=== PATIENT | female | born 2005 | race Caucasian/White ===

== ENCOUNTER 2024-12-04 13:01 | Emergency (ER) | payer OTHER, SELFPAY ==
[2024-12-04 13:07] VITALS: BP 127/82; PULSE 119; RESP 18; TEMP 37; O2SAT 98
--- NOTE | 2024-12-04 13:19 | ED.URI ---
HPI - URI/Sore Throat General Chief Complaint: Upper Respiratory Infection Stated Complaint: Cough,Chest Congestion Time Seen by Provider: 12/04/24 13:21 Source: patient Mode of arrival: ambulatory Limitations: no limitations History of Present Illness HPI Narrative: 19-year-old female presented for complaint cough and chest congestion, congestion , intermittent fever and hoarse voice. Onset 6 days. Endorses a crackling sound when breathing at times. reports temp up to 101 yesterday. Denies shortness of breath, wheezing nausea, vomiting diarrhea or lethargy. Taking Tylenol and ibuprofen. Reports exposure to RSV. Related Data Home Medications ?Medication ?Instructions ?Recorded ?Confirmed ?Last Taken ?Type Nexplanon 12/04/24 Unknown History Allergies Allergy/AdvReac Type Severity Reaction Status Date / Time No Known Allergies Allergy Unverified 12/04/24 13:05 Review of Systems Review of Systems: CONSTITUTIONAL: Denies body aches, reports fever, chills, or sweats. EYES: Denies visual changes, redness, or discharge. ENT: reports rhinorrhea, congestion, denies sore throat, or otalgia. CARDIOVASCULAR: Denies chest pain, palpitations, or edema. RESPIRATORY: Reports cough, denies sob, wheezing. SKIN: Denies rash, itching, or wounds. MUSCULOSKELETAL: Denies back pain, joint pain, or myalgia. NEUROLOGIC: Denies headache All systems reviewed & are unremarkable except as noted in HPI and below PMFSH Comments At time of signature, I have reviewed and agree with nursing past medical, surgical, social and family history unless otherwise noted. Please see nursing chart for further information. There is no relevant family history pertinent to the presenting complaint Exam Narrative: GENERAL: mildly ill-appearing, in no acute distress. EYES: EOMI. No redness or drainage. Conjunctivae normal. ENT: Mucous membranes pink and moist. No rhinorrhea. TMs normal bilaterally. hoarse voice. Throat normal. Uvula midline. NECK: Normal AROM. Supple. CHEST: No respiratory distress. Lungs clear to all logan. Frequent automotive sales specialist cough. HEART: Regular rate and rhythm. No murmur appreciated. SKIN: Warm, dry, no rash. Capillary refill normal. Normal skin turgor. NEURO: Alert and oriented x3. Gait steady. PSYCH: Normal affect. Course Course Emergency Course: Patient is aware of diagnosis, understands and agrees to treatment plan. Anticipatory guidance given. Patient agrees to follow-up as directed and is aware of reasons to seek care at the emergency department. Portions of this record may have been created with voice recognition software Level of Care: Express Care Visit Vital Signs Vital signs: Vital Signs Temperature 98.6 F 12/04/24 13:07 Pulse Rate 119 H 12/04/24 13:07 Respiratory Rate 18 12/04/24 13:07 Blood Pressure 127/82 12/04/24 13:07 Pulse Oximetry 98 12/04/24 13:07 Oxygen Delivery Room Air 12/04/24 13:07 Temperature 98.6 F 12/04/24 13:07 Pulse Rate 119 H 12/04/24 13:07 Respiratory Rate 18 12/04/24 13:07 Blood Pressure 127/82 12/04/24 13:07 Pulse Oximetry 98 12/04/24 13:07 Oxygen Delivery Room Air 12/04/24 13:07 MDM - URI/Sore Throat MDM Narrative Medical decision making narrative: Discussed physical exam findings. Advised supportive measures and signs/symptoms to go to the ER. Pt is appropriate for outpt treatment and f/u. Differential Diagnosis Differential diagnosis: Likely upper respiratory infection, sinusitis, viral infection, bronchitis and other ( Pneumonia) Discharge Plan Discharge Clinical Impression: Bronchitis Patient Disposition: Home, Self-Care Condition: Stable Instructions: Antibiotic Form, Acute Bronchitis (ED) Additional Instructions: Acute bronchitis can be contagious because it is usually caused by infection with a virus or bacteria. It is usually for a few days but you can be contagious for up to one week. Avoid crowds until you do not have a fever and symptoms are improved if symptoms are due to a viral illness, it is not treated with antibiotics. Viral symptoms can be present for up to 10-14 days. Recommend Flonase spray and Zyrtec for sinus congestion Cough syrup may cause drowsiness; avoid driving or take it at night time. Tylenol every 8 hours as needed for pain/fever Soft foods, cool liquids, warm tea. Gargle with warm saltwater twice a day. Chloraseptic spray and throat lozenges. Rest and stay hydrated. --Follow up with your PCP --Go to the ER immediately if you cannot swallow your saliva, trouble breathing/wheezing, throat swelling, pain is persistent and severe Patient Language: Thai Prescriptions: New methylprednisolone [Medrol (Rodney)] 4 mg tablets,dose pack See Rx Instructions .ROUTE .COMPLEX Qty: 21 0RF Rx Instructions: orally per package directions amoxicillin-pot clavulanate 875-125 mg tablet 1 tablet PO Q12H 7 Days Qty: 14 0RF No Action Nexplanon Follow-up/Referrals: PHYSICIAN,AGRICULTURAL REAL ESTATE AGENT [Primary Care Provider] - Stand Alone Forms: Work/School Release IP Time of Disposition: 13:28
--- OUTSIDE RECORDS SUMMARY | 2024-12-09 09:01 | XMS_ITS | Clinical Summary ---
Author Organization [facility] Address [address] [place] [address] Care Team Providers Care Drug And Alcohol Counsellor Name Role Phone Larisa Siddiqi MD Primary Care Provider [phone] Allergies No known active allergies Medications sertraline (ZOLOFT) 50 mg tablet Take 1 tablet (50 mg total) by mouth daily Active scopolamine 1 mg over 3 days patch [address] 1 patch on the skin once 4 Active ibuprofen (ADVIL,MOTRIN) suspension 100 mg/5 mL Take 10 mL (200 mg total) by mouth every 6 (six) hours as needed Active hydrOXYzine (ATARAX) 25 mg tablet Take 1 tablet (25 mg total) by mouth every 6 (six) hours as needed Active etonogestreL (Nexplanon) 68 mg implant by subdermal route 8 Active Active Problems Problem Noted Date Diagnosed Date 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 The mydriasis self- resolved without treatment. Patient underwent CT head without contrast without any identifiable lesion. Associated with headache at the time of the anisocoria which has slowly resolved. Most likely benign episodic mydriasis vs ophthalmic migraine. Discuss that given normal exam at the time of clinic, unlikely there are compressive lesions causing the dilated pupil. Recommend follow up with PCP for headache management. Social History Tobacco Use Types Packs/Day Years Used Date Smoking Tobacco: Never Assessed Personal Safety Answer Date Recorded Have you ever been in or are you currently in a harmful physical or emotional relationship or is someone making you feel afraid or unsafe? Denies 06/02/2024 Comments No Sex and Gender Information Value Date Recorded Sex Assigned at Not on file Legal Sex Female 12:32 AM PAY PER CLICK STRATEGIST Gender Identity Not on file Sexual Orientation Not on file Obstetrics History Last Filed Vital Signs Vital Sign Reading Time Taken Comments Blood Pressure 119/78 06/02/2024 10:17 AM CDT Pulse 86 06/02/2024 12:20 PM CDT Temperature 36.6 ??C (97.8 ??F) 06/02/2024 10:17 AM C DT Respiratory Rate 16 06/02/2024 10:17 AM CDT Oxygen Saturation 97% 06/02/2024 12:20 PM CDT Inhaled Oxygen Concentration - - Weight 86.2 kg (190 lb) 06/02/2024 10:17 AM CDT Height 157.5 cm (5' 2 ) 06/02/2024 10:17 AM CDT Body Mass Index 34.75 06/02/2024 10:17 AM CDT Plan of Treatment Health Maintenance Due Date Last Done Comments Cervical Cancer Screening 2003 Depression Screening 2003 Hepatitis C Screening 2003 Meningococcal B Vaccine (1 o f 2 - Patient Seeks Protection) 2019 Regular Well Visit/Exam 18-64 2021 Covid-19 Vaccine (3 - 2023-2 5 season) 2024 03/08/2021, 02/13/2021 Influenza Vaccine (#1) 2024 2, 09/10/2011, 12/24/2004, Additional history exists DTaP/Tdap/Td Vaccine (7 - Td or Tdap) 12/13/2024 12/13/2014, 02/24/2009, 02/28/2006, Additional history exists Pneumococcal vaccine <65 Completed 006, 09/07/2004, 2003, Additional history exists Varicella Vaccines Completed 02/24/2009, 05/13/2005 HPV Vaccines Completed 05/13/2016, 12/13/2014 Meningococcal Vaccine Completed 05/25/2020, 015 Insurance Care Teams Drug And Alcohol Counsellor Relationship Specialty Start Date End Date Larisa Siddiqi MD PCP - General 07/19/21
--- OUTSIDE RECORDS SUMMARY | 2024-12-09 09:01 | XMS_ITS | Referral Summary ---
Author Organization [facility] Address [address] [place] [address] Care Team Providers Care Probation And Parole Officer Name Role Phone Larisa Siddiqi MD Primary Care Provider [phone] Allergies No known active allergies Medications sertraline [...] on file Legal Sex Female 12:32 AM CURRICULUM ASSISTANT PRINCIPAL Gender Identity Not on file Sexual Orientation Not on file Last Filed Vital Signs Vital Sign Reading [...] 06/02/2024 10:17 AM CDT Plan of Treatment Not on file Insurance Care Teams Probation And Parole Officer Relationship Specialty Start Date End Date Larisa Siddiqi MD PCP - General 07/19/21
--- OUTSIDE RECORDS SUMMARY | 2024-12-09 09:01 | XMS_ITS | Clinical Summary ---
Author Organization [facility] Address [address] [facility] [place] [address] Phone Care Team Providers Care Sociology Research Assistant Name Role Phone Larisa Siddiqi MD Primary Care Provider [phone] Allergies No known active allergies Medications etonogestrel (Nexplanon) 68 MG Implant by Subcutaneous route. 8 Active hydrOXYzine (ATARAX) 25 MG Tablet Take 25 mg by mouth. Active sertraline (ZOLOFT) 50 MG Tablet Take 50 mg by mouth. 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 Social History Tobacco Use Types Packs/Day Years Used Date Smoking Tobacco: Never Smokeless Tobacco: Never Alcohol Use Standard Drinks/Week Comments No 0 (1 standard drink = 0.6 oz pur e alcohol) Sexually Active Control Partners Comments Not Currently Comments No Sex and Gender Information Value Date Recorded Sex Assigned at Not on file Legal Sex Female 11:37 PM CDT Gender Identity Not on file Sexual Orientation Not on file Last Filed Vital Signs Vital Sign Reading Time Taken Comments Blood Pressure 126/72 07/29/2024 2:16 PM CDT Pulse 108 07/29/2024 2:16 PM CDT Temperature 37.1 ??C (98.7 ??F) 07/29/2024 2:16 PM CD T Respiratory Rate 18 07/29/2024 2:16 PM CDT Oxygen Saturation 98% 07/29/2024 2:16 PM CDT Inhaled Oxygen Concentration - - Weight 61.7 kg (136 lb) 07/14/2019 9:12 AM CDT Height 157.5 cm (5' 2 ) 07/14/2019 9:12 AM CDT Body Mass Index 24.87 07/14/2019 9:12 AM CDT Plan of Treatment Health Maintenance Due Date Last Done Comments Hepatitis C Virus (HCV) Screening 2003 Meningococcal B Immunization (1 of 2 - Standard) 2019 Influenza Immunization (#1) 2024 12/0 05/2012, 09/10/2011, 12/24/2004, Additional history exists SARS-COV-2 Immunization ( - season) 2024 03/08/2021, 02/13/2021 Pap Smear 2024 Respiratory Syncytial Virus (RSV) Immunization (Adult) (1 - 1-dose 75+ series) 2078 Hepatitis B Immunization Completed 004, 2003, 2003, Additional history exists Pneumococcal Immunization Combined Aged Out 02/28/2006, 09/07/2004, 2003, Additional history exists No longer eligible based on patient's age to complete this topic Hepatitis A Immunization Discontinued 02/24/2009, 12/2006 Measles Mumps Rubella (MMR) Immunization Discontinued 02/24/2009, 05/13/2005 Polio (IPV) Immunization Discontinued 009, 03/12/2004, 2003, Additional history exists Varicella Immunization Discontinued 02/24/2009, 2004 DTaP/Tdap/Td Immunization Discontinued 2014, 02/24/2009, 02/28/2006, Additional history exists TdaP Immunization Completed 12/13/2014 Human Papillomavirus (HPV) Immunization Completed 05/13/2016, 12/13/2014 Meningococcal Immunization (ACWY) Completed 05/25/2020, 12/13/2014 Rotavirus Immunization Aged Out No lo nger eligible based on patient's age to complete this topic Insurance MEDICAID [facility] [employer] [address] [place], [place] [id number] [employer] Care Teams Sociology Research Assistant Relationship Specialty Start Date End Date Larisa Siddiqi MD [address] [place] [address] [place] [id number] PCP - General Pediatrics 02/24/18
--- OUTSIDE RECORDS SUMMARY | 2024-12-09 09:01 | XMS_ITS | Data Portability ---
Author Organization [facility] SHANIQUAKasi Address [address] [place] [address] [place] [address] Assessment Encounter Date Assessment Date Assessment LastModified by Organization Details LastModified Time 01/23/2018 01/23/2018 1. All forms of control reviewed with patient including risks, benefits, pros and cons. 2. Patient verbalized understanding of all forms and that abstinence is the only true form of control. 3. Condom use reviewed as well and prevention and transmission of STD's. 4. Nexplanon inserted without issue 5. Follow up in one year, sooner if needed [email or web address] Not available 02/02/2018 11:18:09 Plan of Treatment Reminders Order Date Submit Date Provider Last Modified By Organization Details Last Modified Time Details Appointments None record ed. Lab pregna ncy test, urine 2017 018 [email or web address] In-Office Order, Internal Use Only DO Not Attach Compendium DO Not Attach Compendium, Do Not Delete/merge, [id number] 8 14:12:51 vagina l pathog ens panel, NESHA+pr obe, vagina l fluid 2021 022 [facility], [address] [facility], [address], [place], [address], 07:12:44 urinal ysis, dipsti ck 2021 022 [email or web address] In-Office Order, Internal Use Only DO Not Attach Compendium DO Not Attach Compendium, Do Not Delete/merge, [id number] 15:12:24 cultur e, urine 2021 022 PITA [facility], [address], [address], [place], [address], 2 07:12:44 urinal ysis, dipsti ck 2021 022 [facility] In-Office Order, Internal Use Only DO Not Attach Compendium DO Not Attach Compendium, Do Not Delete/merge, [id number] 12:06:55 Referral physic al therap ist referr al 2022 023 [facility], [address] [facility], [facility], [place], [address], 3 17:29:13 Procedures None record ed. Surgeries None record ed. Imaging US, pelvis , transa bdomin al + transv aginal 2022 023 [facility], [address] [facility] , [place], [address], 3 08:24:15 Medication Orders Nexpla non 68 mg subder mal implan t 2017 018 [id number], [address], [place], [place], [id number], 8 14:59:44 Macrob id 100 mg capsul e 2021 022 [facility] #[id number], [address], [place], [place], [id number], 2 09:46:59 Pyridi um 100 mg tablet 2021 022 [facility]75703, [address], [place], [place], [id number], 2 09:46:56 tercon azole 0.8 % vagina l cream 2021 022 [facility][id number], [address], [place], [place], [id number], 11:35:18 Patient TargetsNo targets recorded. Patient Instructions Encounter Date Encounter Id Patient Instructions Last Modified By Organization Details Last Modified Time 05/07/2023 [id number] chronic pelvic pain: care instructions [facility] Not available 05/07/2023 12:15:52 Reason for Referral Physical Therapist Referral for Chronic pelvic pain of female Referring Physician: Sosa Cordova, Dive Master, Encounter Date: 05/07/2023 Results Created Date Observation Date Name Description Value Unit Range Abnormal Flag Note LastModifiedBy Organization Detail LastModifiedTime 01/24/20 18 01/23/2018 pregn gustavo test, urine HCG negati ve Not Available In-Office Order Internal Use Only DO Not Attach Compendium DO Not Attach Compendium, Do Not Delete/merge, [id number] 01/23/2018 14:10:20 01/23/20 22 01/23/2022 CT, NG, TRICH VAG BY NESHA chlamydia by NESHA Negati ve negati ve Not Available [facility] ([facility]) [address] [place], [address], 01/24/2022 07:12:44 01/23/20 22 01/23/2022 CT, NG, TRICH VAG BY NESHA gonococcus by NESHA Negati ve negati ve Not Available [facility] ([facility]) [address] [place], [address], 01/24/2022 07:12:44 01/23/20 22 01/23/2022 CT, NG, TRICH VAG BY NESHA trich vag by NESHA Negati ve negati ve Not Available [facility] ([facility]) [address] [place], [address], 01/24/2022 07:12:44 01/23/20 22 01/24/2022 URINE CULTU RE, ROUTI NE urine culture, routine Final report Not Available [facility] ([facility]) [address] [facility], [place], [address], 01/24/2022 07:12:44 01/23/20 22 01/24/2022 URINE CULTU RE, ROUTI NE result 1 Commen t Mixed uroge nital rajeev Less than 10,00 0 colon ies/m L Not Available [facility] ([facility]) [address] [facility], [place], [address], 01/24/2022 07:12:44 01/23/20 22 01/22/2022 urina lysis , dipst ick Leukocytes Negati ve Not Available In-Office Order Internal Use Only DO Not Attach Compendium DO Not Attach Compendium, Do Not Delete/merge, [id number] 01/22/2022 14:57:58 01/23/20 22 01/22/2022 urina lysis , dipst ick Nitrite negati ve Not Available In-Office Order Internal Use Only DO Not Attach Compendium DO Not Attach Compendium, Do Not Delete/merge, [id number] 01/22/2022 14:57:58 01/23/20 22 01/22/2022 urina lysis , dipst ick Urobilinogen .2 Not Available In-Of fice Order Internal Use Only DO Not Attach Compendium DO Not Attach Compendium, Do Not Delete/merge, [id number] 01/22/2022 14:57:58 01/23/20 22 01/22/2022 urina lysis , dipst ick Protein Negati ve Not Available In-Office Order Internal Use Only DO Not Attach Compendium DO Not Attach Compendium, Do Not Delete/merge, [id number] 01/22/2022 14:57:58 01/23/20 22 01/22/2022 urina lysis , dipst ick pH 7.0 Not Available In-Office Order Internal Use Only DO Not Attach Compendium DO Not Attach Compendium, Do Not Delete/merge, [id number] 01/22/2022 14:57:58 01/23/20 22 01/22/2022 urina lysis , dipst ick Blood Negati ve Not Available In-Office Order Internal Use Only DO Not Attach Compendium DO Not Attach Compendium, Do Not Delete/merge, 01/22/2022 14:57:58 01/23/20 22 01/22/2022 urina lysis , dipst ick Specific Clayton 1.015 Not Available In-Off ice Order Internal Use Only DO Not Attach Compendium DO Not Attach Compendium, Do Not Delete/merge, 01/22/2022 14:57:58 01/23/20 22 01/22/2022 urina lysis , dipst ick Ketone Negati ve Not Available In-Office Order Internal Use Only DO Not Attach Compendium DO Not Attach Compendium, Do Not Delete/merge, 01/22/2022 14:57:58 01/23/20 22 01/22/2022 urina lysis , dipst ick Bilirubin Negati ve Not Available In-Office Order Internal Use Only DO Not Attach Compendium DO Not Attach Compendium, Do Not Delete/merge, 01/22/2022 14:57:58 01/23/20 22 01/22/2022 urina lysis , dipst ick Glucose Negati ve Not Available In-Office Order Internal Use Only DO Not Attach Compendium DO Not Attach Compendium, Do Not Delete/merge, 01/22/2022 14:57:58 01/23/20 22 01/22/2022 urina lysis , dipst ick Appearance Clear Not Available In-Offi ce Order Internal Use Only DO Not Attach Compendium DO Not Attach Compendium, Do Not Delete/merge, 01/22/2022 14:57:58 01/23/20 22 01/22/2022 urina lysis , dipst ick Color Pale Yellow Not Available In-Office Order Internal Use Only DO Not Attach Compendium DO Not Attach Compendium, Do Not Delete/merge, 01/22/2022 14:57:58 02/14/20 22 02/13/2022 urina lysis , dipst ick Leukocytes Negati ve Not Available In-Office Order Internal Use Only DO Not Attach Compendium DO Not Attach Compendium, Do Not Delete/merge, 02/13/2022 11:35:09 02/14/20 22 02/13/2022 urina lysis , dipst ick Nitrite negati ve Not Available In-Office Order Internal Use Only DO Not Attach Compendium DO Not Attach Compendium, Do Not Delete/merge, 02/13/2022 11:35:09 02/14/20 22 02/13/2022 urina lysis , dipst ick Urobilinogen .2 Not Available In-Of fice Order Internal Use Only DO Not Attach Compendium DO Not Attach Compendium, Do Not Delete/merge, 02/13/2022 11:35:09 02/14/20 22 02/13/2022 urina lysis , dipst ick Protein Negati ve Not Available In-Office Order Internal Use Only DO Not Attach Compendium DO Not Attach Compendium, Do Not Delete/merge, 02/13/2022 11:35:09 02/14/20 22 02/13/2022 urina lysis , dipst ick pH 5.0 Not Available In-Office Order Internal Use Only DO Not Attach Compendium DO Not Attach Compendium, Do Not Delete/merge, 02/13/2022 11:35:09 02/14/20 22 02/13/2022 urina lysis , dipst ick Blood Hemoly zed: Trace Not Available In-Office Order Internal Use Only DO Not Attach Compendium DO Not Attach Compendium, Do Not Delete/merge, 02/13/2022 11:35:09 02/14/20 22 02/13/2022 urina lysis , dipst ick Specific Clayton 1.030 Not Available In-Off ice Order Internal Use Only DO Not Attach Compendium DO Not Attach Compendium, Do Not Delete/merge, 02/13/2022 11:35:09 02/14/20 22 02/13/2022 urina lysis , dipst ick Ketone Negati ve Not Available In-Office Order Internal Use Only DO Not Attach Compendium DO Not Attach Compendium, Do Not Delete/merge, 02/13/2022 11:35:09 02/14/20 22 02/13/2022 urina lysis , dipst ick Bilirubin Negati ve Not Available In-Office Order Internal Use Only DO Not Attach Compendium DO Not Attach Compendium, Do Not Delete/merge, [id number] 02/13/2022 11:35:09 02/14/20 22 02/13/2022 urina lysis , dipst ick Glucose Negati ve Not Available In-Office Order Internal Use Only DO Not Attach Compendium DO Not Attach Compendium, Do Not Delete/merge, [id number] 02/13/2022 11:35:09 05/14/20 23 05/14/2023 US, pelvi s, trans abdom inal + trans vagin al No observ ation record ed. [place] [address] [place], [address], 05/15/2023 15:34:41 Result Notes None recorded. Problems No Known Problems Procedures Surgical History Date Name Laterality Status Provider Name and Address Organization Details Recorded Time 8 Control Implant Insertion completed SULTANA Zavaleta Attn: Accounting,[address] [facility], [place], [address], [place] - [facility] 02/02/2018 11:17:43 Imaging Results Imaging Date Name Status LastModified by Organization Details LastModified Time 05/14/2023 US, pelvis, transabdominal + transvaginal completed [place] [address] [place], [address], 05/15/2023 15:34:41 Procedure Notes None recorded. Medical Equipment None Reported. Allergies No known drug allergies Medications Name Sig Start Date Stop Date Status Note LastModified by Organization Details LastModified Time fluconazole 150 mg tablet Take 1 tablet by oral route as directed for 1 day. 05/07 completed Not Available Not Available Not Available prednisone 20 mg tablet TAKE TWO TABLETS BY MOUTH ONCE DAILY FOR FIVE DAYS 05/07 completed Not Available Not Available Not Available terconazole 0.8 % vaginal cream Insert 1 applicato rful every day by vaginal route at bedtime for 3 days. 05/07 completed Not Available Not Available Not Available amoxicillin 875 mg tablet TAKE 1 TABLET BY MOUTH TWICE DAILY FOR 10 DAYS 05/07 completed Not Available Not Available Not Available phenazopyri dine 100 mg tablet TAKE 1 TABLET BY MOUTH THREE TIMES DAILY FOR 7 DAYS 01/29 completed Not Available Not Available Not Available doxycycline monohydrate 100 mg capsule TAKE ONE CAPSULE BY MOUTH TWICE DAILY FOR TEN DAYS 05/07 completed Not Available Not Available Not Available omeprazole 20 mg capsule,del ayed release active Not Available Not Available Not Available hydroxyzine HCl 25 mg tablet TAKE 1-2 TABLETS NEEDED FOR PANIC ATTACKS active Not Available Not Available No t Available scopolamine 1 mg over 3 days transdermal patch APPLY 1 PATCH AT LEAST 24 HRS PRIOR TO MOTOR VEHICLE TRAVEL TRANSDERM AL BEHIND EAR. MAY LEAVE IN PLACE FOR 72 HRS active Not Available Not Available No t Available fluticasone propionate 50 mcg/actuati on nasal spray,suspe nsion SHAKE LIQUID AND USE 2 SPRAYS IN EACH NOSTRIL EVERY DAY AT BEDTIME 01/22 completed Not Available Not Available Not Available sertraline 50 mg tablet TAKE 1/2 TABLET BY MOUTH DAILY FOR 8 DAYS THEN TAKE 1 TABLET BY MOUTH DAILY active Not Available Not Available No t Available amoxicillin 875 mg-potassiu m clavulanate 125 mg tablet TAKE 1 TABLET BY MOUTH EVERY 12 HOURS FOR 10 DAYS 01/22 completed Not Available Not Available Not Available escitalopra m 10 mg tablet TAKE 1 TABLET BY MOUTH EVERY DAY active Not Available Not Available No t Available nitrofurant oin monohydrate /macrocryst als 100 mg capsule TAKE 1 CAPSULE BY MOUTH EVERY 12 HOURS FOR 5 DAYS 01/29 completed Not Available Not Available Not Available Nexplanon 68 mg subdermal implant Inject 1 implant by subcutane ous route. 2017 active Not Available Not Available Not Avai lable Vitals Date Recorded Body weight Provider Name an d Address Organization Details Last Updated DateTime 01/23/2018 87483.31 g Flaquita Farias MA [facility] 01/23/2018 14:00:36 Date Recorded Body mass index (BMI) Body height Provider Name and Address Organization Details Last Updated DateTime 01/23/2018 21.4 kg/m2 157.48 cm NIKOS Beckham - [facility] 01/23/2018 14:04:03 Date Recorded Body height Provider Name an d Address Organization Details Last Updated DateTime 01/22/2022 157.48 cm Kelly Diaz [facility] 2021 14:50:18 Date Recorded Body mass index (BMI) Percentile per age and sex Body mass index (BMI) Body weight Provider Name and Address Organization Details Last Updated DateTime 01/22/2022 91 % 27.9 kg/m2 30492.84 g Kelly Diaz [facility] 01/22/2022 14:50:30 Date Recorded Body height Provider Name an d Address Organization Details Last Updated DateTime 02/13/2022 157.48 cm Fatuma Rendon MA [facility] 022 11:24:23 Date Recorded Body mass index (BMI) Body mass index (BMI) Percentile per age and sex Body weight Provider Name and Address Organization Details Last Updated DateTime 02/13/2022 28.3 kg/m2 92 % 33805.82 g Fatuma Rendon MA [facility] 02/13/2022 11:24:32 Date Recorded Body height Provider Name an d Address Organization Details Last Updated DateTime 05/07/2023 157.48 cm Fatuma Rendon MA [facility] 023 12:09:05 Date Recorded Body mass index (BMI) Body mass index (BMI) Percentile per age and sex Body weight Provider Name and Address Organization Details Last Updated DateTime 05/07/2023 34.2 kg/m2 97 % 63423.37 g Fatuma Rendon MA [facility] 05/07/2023 12:09:17 Date Recorded Heart rate Provider Name an d Address Organization Details Last Updated DateTime 05/07/2023 93 /min Fatuma Rendon MA [facility] 023 12:09:30 Date Recorded Systolic blood pressure Diastolic blood pressure Provider Name and Address Organization Details Last Updated DateTime 01/23/2018 108 mm[Hg] 70 mm[Hg] Flaquita Farias MA [facility] 01/23/2018 14:04:53 Date Recorded Systolic blood pressure Diastolic blood pressure Provider Name and Address Organization Details Last Updated DateTime 01/22/2022 110 mm[Hg] 64 mm[Hg] Kelly Diaz [facility] 01/22/2022 14:53:33 Date Recorded Systolic blood pressure Diastolic blood pressure Provider Name and Address Organization Details Last Updated DateTime 02/13/2022 114 mm[Hg] 62 mm[Hg] Fatuma Rendon MA [facility] 02/13/2022 11:34:23 Date Recorded Systolic blood pressure Diastolic blood pressure Provider Name and Address Organization Details Last Updated DateTime 05/07/2023 136 mm[Hg] 79 mm[Hg] Fatuma Rendon MA [facility] 05/07/2023 12:09:24 Social History Question Answer Notes LastModified by Organizat ion Details LastModified Time Tobacco Smoking Status Never Smoker Flaquita Farias MA null, [facility] 01/23/2018 14:05:59 What Is Your Level Of Alcohol Consumption? None Information not available 01/22/2022 In The 14 Days Before Symptom Onset, Have You Had Close Contact With A Laboratory-confirm ed COVID-19 While That Case Was Ill? No [email or web address] Information n ot available 01/22/2022 In The 14 Days Before Symptom Onset, Have You Had Close Contact With A Person Who Is Under Investigation For COVID-19 While That Person Was Ill? No [email or web address] Information not available 01/22/2022 Have You Been To An Area Known To Be High Risk For COVID-19? No [email or web address] Information not available 01/22/2022 What Was The Date Of Your Most Recent Tobacco Screening? 01/22/2022 [email or web address] Information not available 01/22/2022 Are You Sexually Active? Yes [email or web address] Information not available 01/22/2022 Do You Have Smoke And Carbon Monoxide Detectors In Your Home? Yes [email or web address] Information not available 01/22/2022 Are You Passively Exposed To Smoke? No [email or web address] Information no t available 01/22/2022 Do You Use Any Illicit Or Recreational Drugs? No [email or web address] Information not available 01/22/2022 Do You Or Have You Ever Used Any Other Forms Of Tobacco Or Nicotine? No [email or web address] Information not available 01/22/2022 Sex: Female Functional Status None recorded. Mental Status None recorded. Family History Nothing Reported. Medical History Condition Response Coronary Artery Disease N Other N High Blood Pressure N Atrial Fibrillation N Kidney or Bladder Problems N Thyroid Problems N GI Problems N Depression N COPD N Blood Clots N Skin Problems N Anemia N Heart Attack ([place]) N Anxiety Disorder N Diabetes N Muscle, Joint, or Bone Problems N Seizures/Epilepsy N Acid Reflux (GERD) N Cancer N Stroke N Asthma N Allergies N High Cholesterol N Hepatitis N Liver Disease N Headaches N Heart Failure N Osteoporosis N Gynecological History Statement/Question Response Flow Light Date of LMP 04/24/2023 Menses Monthly N Age at Menarche 9 Current Control Method Implant LMP Unknown Obstetrics History GPAL:G 0 P 0 0 0 0 Past Encounters Encounter ID Performer Location Encounter Start Date Encounter Closed Date Diagnosis/Indication Diagnosis SNOMED-CT Code Diagnosis ICD10 Code Diagnosis Note [id number] [facility] ([facility]) [address] [facility] [address] [place] [address] 01/23/2018 13:52:22 02/02/2018 18:43:48 Contraception care 974352353 Z30.40 [id number] SULTANA Zavaleta 12 OB [address] [facility] [address] [place] [address] 01/22/2022 14:32:38 01/23/2022 06:01:14 At increased risk of urinary tract infection 344310850 Z91.89 1. Will send meds out for UTI 2. Pt instructed to increase fluids, decrease soda, sugary beverages and caffeinate d beverages. 3. To call office if symptoms worsen or do not improve with treatment. Dysuria 83443548 R30.9 1. STD testing done per pt symptoms 2. Educated pt on STD prevention , Condom use 3. Pt verbalized understand ing 4. Will follow up pending lab results, as needed or at next annual Contracept ion care management 454110848 Z30.9 Pt will schedule nexplanon removal and replacemen t. [id number] SULTANA Zavaleta 14 OB [address] [facility] [address] [place] [address] 02/13/2022 11:19:38 02/14/2022 08:42:22 At increased risk of urinary tract infection 626309607 Z91.89 1. Will monitor as dip was negative. 2. Pt instructed to increase fluids, decrease soda, sugary beverages and caffeinate d beverages. 3. To call office if symptoms worsen or do not improve changes. Vaginal irritation 20818 6004 N89.8 Meds sent to pharmacy. Counseled on bv/yeast prevention and treatment. Will call office back if treatment does not help with symptoms. Pt verbalized understand ing. [id number] ANGIE Zavaleta-ROBERTO [place] [address] OB [address] [facility] [address] [place] [address] 05/07/2023 12:02:05 05/13/2023 08:58:15 Chronic pelvic pain of female 797456791 R10.2 Will order pelvic ultrasound . Pt advised on treatment options for ovarian cysts and fibroids including but not limited to control use. Pt educated on other causes of pelvic pain included but not limited to constipati on or bladder issues. Pt verbalized understand ing. Will follow up pending results. [facility] care management 604165391 Z30.9 Pt will schedule nexplanon removal and replacemen t. Health Concerns Section Related Observation LastModified by Organization Detai ls LastModified Time None Recorded Concern Status LastModified by Organization Details LastModified Time None Recorded Advance Directives Directive None Recorded Payers Encounter Date Sequence Insurance Name Policy Number Policy Hernandes Covered Member ID Hernandes Member ID Guarantor Name 01/23/2018 2 *SELF PAY* Be pan Atkinson 01/23/2018 1 [place] [employer] Aranza Atkinson [id number] Feli Atkinson 01/22/2022 1 [facility] ON OR AFTER 05/17/21 (MEDICAID REPLACEMENT - HMO) Aranza Atkinson [id number] Feli Atkinson 02/13/2022 1 [facility] ON OR AFTER 05/17/21 (MEDICAID REPLACEMENT - HMO) Aranza Atkinson [id number] Feli Atkinson 05/07/2023 1 [facility] ON OR AFTER 05/17/21 (MEDICAID REPLACEMENT - HMO) Aranza Atkinson [id number] Feli Atkinson Notes Date Note Type Note Provider Name and Address Organization Details Recorded Time 01/23/2018 text/html Annual GYNReport ed bypatient.History:n o gynecologic complaints Menstrual cycle:Normal menses Urinary symptoms:No hematuria; No incontinence Vulva:No genital lesion Vagina:Normal vaginal discharge Breast:No breast pain; No breast lump; No nipple discharge Current Contraception:Wants to discuss contraceptive options Sexual complaints:No sexual complaints; No pain during intercourse; Normal libido Menopausal Symptoms:No menopausal symptoms; Normal vaginal lubrication Psychological symptoms:No depression; No anxiety; No PMDD Preventive measures:Encourage self breast examination; Encourage regular exercise; Encourage no tobacco use Patient here for control discussion. Mom and pt would both like Nexplanon. Pt states she is not sexually active and has a normal 28 day cycle. SULTANA Zavaleta Attn: Accounting[address] [place], [address], [facility] 02/02/2018 11:19:33 01/22/2022 text/html Annual GYNReport ed bypatient.History:n o gynecologic complaints Menstrual cycle:Normal menses Urinary symptoms:No hematuria; No incontinence;Burnin g sensation during urination;Increased urinary frequency Vulva:No genital lesion Vagina:Normal vaginal discharge Breast:No breast pain; No breast lump; No nipple discharge Current Contraception:Satis fied with current contraception Sexual complaints:No sexual complaints; No pain during intercourse; Normal libido Menopausal Symptoms:No menopausal symptoms; Normal vaginal lubrication Psychological symptoms:No depression; No anxiety; No PMDD Preventive measures:Encourage self breast examination; Encourage regular exercise; Encourage no tobacco use doing well, nexplanon placed 2017, will reschedule to have removed and replacedfor last week burning, urgency and frequency with urination, pain during sex SULTANA Zavaleta Attn: Accounting[address] [place], [address], [facility] 01/22/2022 15:12:13 02/13/2022 text/html Annual GYNReport ed bypatient.History:n o gynecologic complaints Menstrual cycle:Normal menses Urinary symptoms:No hematuria; No incontinence;Burnin g sensation during urination;Increased urinary frequency Vulva:No genital lesion Vagina:Normal vaginal discharge Breast:No breast pain; No breast lump; No nipple discharge Current Contraception:Satis fied with current contraception Sexual complaints:No sexual complaints; No pain during intercourse; Normal libido Menopausal Symptoms:No menopausal symptoms; Normal vaginal lubrication Psychological symptoms:No depression; No anxiety; No PMDD Preventive measures:Encourage self breast examination; Encourage regular exercise; Encourage no tobacco use for last week burning, urgency and frequency with urination, pain during sexwent away with treatment earlier in month and now returned, stopped shaving vaginal area this week and has helped SULTANA Zavaleta Attn: Accounting[address] [place], [address], [facility] 02/13/2022 12:06:45 05/07/2023 text/html Annual GYNReport ed bypatient.History:n o gynecologic complaints Menstrual cycle:Normal menses Urinary symptoms:No hematuria; No incontinence Vulva:No genital lesion Vagina:Normal vaginal discharge Breast:No breast pain; No breast lump; No nipple discharge Current Contraception:Satis fied with current contraception Sexual complaints:No sexual complaints; Normal libido;Pain during intercourse Menopausal Symptoms:No menopausal symptoms; Normal vaginal lubrication Psychological symptoms:No depression; No anxiety; No PMDD Preventive measures:Encourage self breast examination; Encourage regular exercise; Encourage no tobacco use 17 yo here for nexplanon consult- nexplanon placed 01/23/18, would like a new one placed- c/o pain with intercourse, has tried different positions, lubricants etc and no relief, same partner for 4 years SULTANA Zavaleta Attn: Accounting,[address] [place], [address], [facility] 05/07/2023 14:19:24 OBGyn Episode No OBEpisode recorded.
== END 2024-12-04 13:36 | disposition home or self-care (01) ==
PROVIDERS: Emergency Provider Nurse Practitioner Family
DX: J40 Bronchitis, not specified as acute or chronic (principal)
CPT/HCPCS: 99203; G0463

== ENCOUNTER 2025-01-05 13:37 | Emergency (ER) | payer MEDICAID, SELFPAY ==
--- NOTE | 2025-01-05 13:38 | ED.URI ---
HPI - URI/Sore Throat General Chief Complaint: Upper Respiratory Infection Stated Complaint: headache/nausea/fever Time Seen by Provider: 01/05/25 14:07 Source: patient and RN notes reviewed Mode of arrival: ambulatory Limitations: no limitations History of Present Illness HPI Narrative: 19-year-old female presents with concerns for 5 day history of fever, headache, nausea, vomiting, nasal drainage. Reports sore throat started last night. She has been taking a multi symptom cold medicine and Tylenol. MD elicited complaint: cough and sore throat Related Data Home Medications ?Medication ?Instructions ?Recorded ?Confirmed ?Last Taken ?Type Nexplanon 12/04/24 Unknown History Allergies Allergy/AdvReac Type Severity Reaction Status Date / Time No Known Allergies Allergy Verified 01/05/25 13:56 Review of Systems Review of Systems: CONSTITUTIONAL: Reports malaise, chills, sweats, fever. EYES: Denies visual changes, redness, or discharge. ENT: Reports rhinorrhea, congestion, and sore throat. CARDIOVASCULAR: Denies chest pain, palpitations, or edema. RESPIRATORY: Reports cough. Denies dyspnea. GASTROINTESTINAL: Denies abdominal pain, nausea, vomiting, diarrhea SKIN: Denies rash or itching. MUSCULOSKELETAL: Reports myalgia. NEUROLOGIC: Reports headache. All systems reviewed & are unremarkable except as noted in HPI and below PMFSH Comments At time of signature, agree with nursing past medical, surgical, social and family history. There is no relevant family history pertinent to the presenting complaint Exam Narrative: GENERAL: Well-appearing, well-nourished, and in no acute distress. HEAD: Normocephalic EYES: PERRLA, conjunctivae clear ENT: Nares clear, turbinates edematous and erythematous. Mucous membranes moist. TM pearly mccullough with sharp light reflex bilaterally; no tragal tenderness. Oropharynx not erythematous without lesions. Tonsils not enlarged and without exudate, no drooling, no hoarseness, no trismus, uvula midline. NECK: Supple. No lymphadenopathy CHEST: Clear to auscultation, breath sounds equal. No wheezing, rhonchi, rales, or stridor. No respiratory distress, speaks in full sentences. HEART: Regular rate and rhythm. No murmur heard. SKIN: Warm, dry, no rash. NEURO: Alert and oriented x3. PSYCH: Normal mood and affect Course Course Emergency Course: Patient is aware of diagnosis, understands and agrees to treatment plan. Anticipatory guidance given. Patient agrees to follow-up as directed and is aware of reasons to seek care at the emergency department. Portions of this record may have been created with voice recognition software Level of Care: Express Care Visit Vital Signs Vital signs: Reviewed. MDM - URI/Sore Throat MDM Narrative Medical decision making narrative: Differential diagnosis considered: Madrigal virus, strep pharyngitis, allergic rhinitis, upper respiratory tract infection, sinusitis, rhinosinusitis, nasopharyngitis. viral pharyngitis, otitis media, otitis externa, pneumonia, bronchitis, viral cough syndrome, viral syndrome, and influenza. Exam findings show no acute concerns or changes; patient is non-toxic appearing and is in no distress. Patient is appropriate for outpatient treatment and follow-up. Lab Data Attestation: I reviewed the patient's lab results. Critical Care Time Critical Care Time Critical Care Time: No Discharge Plan Discharge Clinical Impression: Influenza A Patient Disposition: Home, Self-Care Condition: Stable Instructions: Influenza (ED) Additional Instructions: -Take strict precautions to prevent the spread of your virus. Be diligent about covering your cough (even when you are alone) and washing your hands frequently. -You may contagious until you have been symptom and/or fever free for 24 hours without fever reducing medicine -Alternate Ibuprofen and Tylenol for pain and fever relief (per package directions) e dehydration worse. -Get plenty of rest to help your body heal. -Use a cool mist humidifier for chest and nasal congestion. -Eat RAW honey or use cough drops to ease throat discomfort -Do not smoke or expose children to secondhand smoke -Wash your hands frequently. -Please follow-up with your primary care doctor in the next 1-2 days if your symptoms do not improve. -If you have any worsening of symptoms or any other concerns please go to the ED immediately. -Please take medications as prescribed and continue taking your home medications as usual. Patient Language: Upper Sorbian Prescriptions: New pseudoephedrine HCl [12 Hour Decongestant] 120 mg tablet extended release 120 mg PO Q12H PRN (Reason: nasal congestion) Qty: 20 0RF dextromethorphan-guaifenesin [Mucinex DM] 60-1,200 mg tablet extended release 12 hr 1 tablet PO Q12H Qty: 12 0RF No Action Nexplanon Follow-up/Referrals: UNKNOWN,DOCTOR [Non-Staff] - Stand Alone Forms: Work/School Release IP Time of Disposition: 14:16
[2025-01-05 13:42] VITALS: BP 126/66; PULSE 107; RESP 16; TEMP 36.4; O2SAT 100
--- OUTSIDE RECORDS SUMMARY | 2025-01-05 13:43 | XMS_ITS | Patient Health Summary ---
Author Organization [facility] Address [address] [place] [address] Care Team Providers Care Strength And Conditioning Coach Name Role Phone Larisa Siddiqi MD Primary Care Provider [phone] Larisa Siddiqi MD Unavailable [phone] Note from [facility],non-owned Affiliates and Associated Physician Practices is amultiple site organization consisting of ambulatory clinics and hospital sitesin [place], [place], [place] and [place]. This disclosure is being madepursuant to the Care Everywhere program and may not contain all information available regarding this patient. Last updated 18.[facility] Allergies No known active allergies Medications * Be aware that medications may not be up to date on this document. Alwaysverify current medications with the patient. * ibuprofen (ADVIL; MOTRIN) 100 MG/5ML suspension Take by mouth every 6 hours as needed for Pain or Fever Active Problems Problem Noted Date Diagnosed Date Closed avulsion fracture of distal phalanx of fi nger 11/03/2018 Social History Tobacco Use Types Packs/Day Years Used Date Smoking Tobacco: Passive Smo ke Exposure - Never Smoker Smokeless Tobacco: Never Sex and Gender Information Value Date Recorded Sex Assigned at Not on file Gender Identity Not on file Sexual Orientation Not on file Last Filed Vital Signs Vital Sign Reading Time Taken Comments Blood Pressure 124/70 03/25/2019 2:30 PM CDT Pulse 122 02/24/2017 5:17 PM CDT Temperature 37.4 C (99.4 F) 02/24/2017 5:17 PM CDT Respiratory Rate - - Oxygen Saturation 96% 01/01/2017 1:01 PM SLICING MACHINE OPERATOR/TENDER Inhaled Oxygen Concentration - - Weight 60.3 kg (133 lb) 03/25/2019 2:30 PM CDT Height 157.5 cm (5' 2 ) 03/25/2019 2:30 PM CDT Body Mass Index 24.33 03/25/2019 2:30 PM CDT Procedures * STREP A SCREEN - POINT OF CARE (AMB) STL(Performed 02/24/2017) Performed for Strep throat * INFLUENZA A+B - POINT OF CARE (AMB)(Performed 01/01/2017) Performed for Acute nasopharyngitis (common cold) * CULTURE RESPIRATORY UPPER(Performed 01/01/2017) Performed for Acute nasopharyngitis (common cold) * STREP A SCREEN - POINT OF CARE (AMB) STL(Performed 01/01/2017) Performed for Acute nasopharyngitis (common cold) Results * (ABNORMAL) STREP A SCREEN (02/24/2017) Only the most recent of2 resultswithin the time period is included. Pathologist [facility] Strep A Rapid POCT Positive(A) Negative Strep A Internal Control Present Lot # [id number] Expiration Date [id number] Throat ENTIRE THROAT (SURFACE REGION OF NECK) / Unknown 02/24/2017 Destiny Knox RN FIRST ASSIST-[facility] - POINT OF CARE ORDERABLES * INFLUENZA A+B - POINT OF CARE (AMB) (01/01/2017 1:33 PM SLICING MACHINE OPERATOR/TENDER) Pathologist [facility] Influenza A Antigen Rapid Negative Negative Influenza B Antigen Rapid Negative Negative Influenza Internal Control positive NEGATIVE - POSITIVE Influenza Lot Number [id number] Influenza Expiration Date Other NASOPHARYNGEAL SWAB / Unknown 01/01/2017 1:33 PM SLICING MACHINE OPERATOR/TENDER Moon Villeda RN [facility] - POINT O F CARE ORDERABLES * [facility] Throat Culture (01/01/2017 1:15 PM SLICING MACHINE OPERATOR/TENDER) Upper Respiratory Culture Final report [facility] INSURANCE BILL Result 1 [facility] INSURANCE BILL Comment:Routine respiratory rajeev Microbiology ENTIRE THROAT (SURFACE REGION OF NECK) / Unknown 01/01/2017 1:15 PM SLICING MACHINE OPERATOR/TENDER 01/01/2017 Narrative Resulting Agency Comment [facility] [address] [facility] [id number] Moon Villeda RN [facility] - MICROBI OLOGY ORDERABLES [facility] INSURANCE BILL [address] [place] [address] Care Teams Strength And Conditioning Coach Relationship Specialty Start Date End Date aLrisa Siddiqi MD PCP - General Pediatrics 02/24/17 Larisa Siddiqi MD Pediatrics 02/24/17
--- OUTSIDE RECORDS SUMMARY | 2025-01-05 13:43 | XMS_ITS | Clinical Summary ---
Author Organization [facility] Address [address] [facility] [place] [address] Phone Care Team Providers Care Seaming Inspector Name Role Phone Larisa Siddiqi MD Primary Care Provider [phone] Allergies No known active allergies Medications etonogestrel [...] 108 07/29/2024 2:16 PM CDT Temperature 37.1 C (98.7 F) 07/29/2024 2:16 PM CDT Respiratory Rate 18 07/29/2024 2:16 PM CDT [...] 09/10/2011, 12/24/2004, Additional history exists SARS-COV-2 Immunization (3 - season) 2024 03/08/2021, 02/13/2021 Pap Smear [...] this topic Insurance MEDICAID [employer] Care Teams Seaming Inspector Relationship Specialty Start Date End Date Larisa Siddiqi MD [address] [place] [address] PCP - General Pediatrics 02/24/18
--- OUTSIDE RECORDS SUMMARY | 2025-01-05 13:43 | XMS_ITS | Referral Summary ---
Author Organization [facility] Address [address] [place] [address] Care Team Providers Care Internal Grinder Set Up Operator Name Role Phone Larisa Siddiqi MD Primary Care Provider [phone] Larisa Siddiqi MD Unavailable [phone] Source Comments [facility],non-owned Affiliates and Associated Physician Practices is amultiple site organization consisting of ambulatory clinics and hospital sitesin [place], [place], [place] and [place]. This disclosure is being madepursuant to the Care Everywhere program and may not contain all information available regarding this patient. Last updated 18.[facility] Allergies No known active allergies Medications * Be aware that medications may not be up to date on this document. Alwaysverify current medications with the patient. Medication Sig Dispensed Refills Start Date End Date Status ibuprofen (ADVIL; MOTRIN) 100 MG/5ML suspension Take by mouth every 6 hours as needed for Pain or Fever Active Active Problems Problem Noted Date Diagnosed Date Closed avulsion fracture of distal phalanx of andrea boss 11/03/2018 Social History Tobacco Use Types Packs/Day [...] - Oxygen Saturation 96% 01/01/2017 1:01 PM APPLIED MATHEMATICIAN Inhaled Oxygen Concentration - - Weight 60.3 kg (133 lb) 03/25/2019 2:30 PM CDT Height 157.5 cm (5' 2 ) 03/25/2019 2:30 PM CDT Body Mass Index 24.33 03/25/2019 2:30 PM CDT Plan of Treatment Not on file Care Teams Internal Grinder Set Up Operator Relationship Specialty Start Date End Date Larisa Siddiqi MD PCP - General Pediatrics 02/24/17 Larisa Siddiqi MD Pediatrics 02/24/17
--- OUTSIDE RECORDS SUMMARY | 2025-01-05 13:43 | XMS_ITS | Clinical Summary ---
Author Organization [facility] Address [address] [place] [address] Care Team Providers Care Patient Care Technician Name Role Phone Larisa Siddiqi MD Primary Care Provider [phone] Larisa Siddiqi MD Unavailable [phone] Source Comments [facility],non-owned Affiliates and Associated Physician Practices is amultiple site organization consisting of ambulatory clinics and hospital sitesin [place], [place], [place] and [place]. This disclosure is being madepursuant to the Care Everywhere program and may not contain all information available regarding this patient. Last updated 18.[facility] Allergies No known active allergies Medications [...] - Oxygen Saturation 96% 01/01/2017 1:01 PM ASSEMBLY LEADER Inhaled Oxygen Concentration - - Weight 60.3 kg (133 lb) 03/25/2019 2:30 PM CDT Height 157.5 cm (5' 2 ) 03/25/2019 2:30 PM CDT Body Mass Index 24.33 03/25/2019 2:30 PM CDT Plan of Treatment Health Maintenance Due Date Last Done Comments PAP SMEAR 2003 HIV SCREENING 2018 HPV VACCINE (1 - 3-dose series) 2018 CHLAMYDIA/GONORRHEA SCREENING 2019 MENINGOCOCCAL (Group B) VACC INE (1 of 2 - Standard) 2019 HEPATITIS C SCREENING 08/19/2021 DTAP/TDAP/TD VACCINES (1 - Tdap) 2022 HEPATITIS B VACCINE (1 of 3 - 19+ 3-dose series) 2022 COVID-19 VACCINE (1 - 2023-2 5 season) 2024 INFLUENZA VACCINE (#1) 2024 DEPRESSION SCREENING 11/17/2024 ZOSTER VACCINE (1 of 2) 2053 HIB VACCINE Aged Out No longer eligi ble based on patient's age to complete this topic MENINGOCOCCAL VACCINE Aged Out No shabnam gisella eligible based on patient's age to complete this topic PNEUMOCOCCAL VACCINE Aged Out No long er eligible based on patient's age to complete this topic Care Teams Patient Care Technician Relationship Specialty Start Date End Date Larisa Siddiqi MD PCP - General Pediatrics 02/24/17 Larisa Siddiqi MD Pediatrics 02/24/17
--- OUTSIDE RECORDS SUMMARY | 2025-01-05 13:43 | XMS_ITS | Referral Summary ---
Author Organization [facility] Address [address] [place] [address] Care Team Providers Care Morale Officer Name Role Phone Larisa Siddiqi MD Primary Care Provider [phone] Allergies No known active allergies Medications sertraline [...] on file Legal Sex Female 12:32 AM POWER HAIR CLIPPER Gender Identity Not on file Sexual Orientation Not on file Last Filed Vital Signs Vital Sign Reading Time Taken Comments Blood Pressure 119/78 06/02/2024 10:17 AM CDT Pulse 86 06/02/2024 12:20 PM CDT Temperature 36.6 C (97.8 F) 06/02/2024 10:17 AM CDT Respiratory Rate 16 06/02/2024 10:17 AM CDT Oxygen Saturation 97% 06/02/2024 12:20 PM CDT Inhaled Oxygen Concentration - - Weight 86.2 kg (190 lb) 06/02/2024 10:17 AM CDT Height 157.5 cm (5' 2 ) 06/02/2024 10:17 AM CDT Body Mass Index 34.75 06/02/2024 10:17 AM CDT Plan of Treatment Not on file Insurance Care Teams Morale Officer Relationship Specialty Start Date End Date Larisa Siddiqi MD PCP - General 07/19/21
--- OUTSIDE RECORDS SUMMARY | 2025-01-05 13:43 | XMS_ITS | Clinical Summary ---
Author Organization [facility] Address [address] [place] [address] Care Team Providers Care Senior Accountant Analyst Name Role Phone Larisa Siddiqi MD Primary Care Provider [phone] Allergies No known active allergies Medications sertraline [...] on file Legal Sex Female 12:32 AM CREDIT RISK ASSOCIATE Gender Identity Not on file Sexual Orientation [...] Vaccine Completed 05/25/2020, 015 Insurance Care Teams Senior Accountant Analyst Relationship Specialty Start Date End Date Larisa Siddiqi MD PCP - General 07/19/21
--- OUTSIDE RECORDS SUMMARY | 2025-01-05 13:43 | XMS_ITS | Data Portability ---
Author Organization [facility] SHANIQUAKasi Address [address] [place] [address] [place] [address] Assessment Encounter Date Assessment Date Assessment LastModified [...] Time Details Appointments None record ed. Lab urinal ysis, dipsti ck 2021 022 [email or web address] In-Office Order, Internal Use Only DO Not Attach Compendium DO Not Attach Compendium, Do Not Delete/merge, [id number] 12:06:55 vagina l pathog ens panel, NESHA+pr obe, vagina l fluid 2021 022 CHIGNIK LAGOON [facility], [address], [address], [place], [address], 07:12:44 urinal ysis, dipsti ck 2021 022 [email or web address] In-Office Order, Internal Use Only DO Not Attach Compendium DO Not Attach Compendium, Do Not Delete/merge, [id number] 15:12:24 cultur e, urine 2021 022 CHIGNIK LAGOON [facility], [address], [address], [place], [address], 2 07:12:44 pregna ncy test, urine 2017 018 [facility] In-Office Order, Internal Use Only DO Not Attach Compendium DO Not Attach Compendium, Do Not Delete/merge, [id number] 14:12:51 Referral physic al therap ist referr al 2022 023 [facility], [address], [facility], [place], [address], 3 17:29:13 Procedures None record ed. Surgeries None record ed. Imaging US, pelvis , transa bdomin al + transv aginal 2022 023 [facility], [address] [facility] , [place], [address], 3 08:24:15 Medication Orders tercon azole 0.8 % vagina l cream 2021 022 [facility][id number], [address], [place], [place], [id number], 3 11:35:18 Macrob id 100 mg capsul e 2021 022 [facility] #[id number], [address], [place], [place], [id number], 2 09:46:59 Pyridi um 100 mg tablet 2021 [facility] #16050, [address], [place], [place], [id number], 2 09:46:56 Nexpla non 68 mg subder mal implan t 2017 018 [facility] #48659, [address], [place], [place], [id number], 8 14:59:44 Patient TargetsNo targets recorded. Patient Instructions Encounter Date Encounter Id Patient Instructions Last Modified By Organization Details Last Modified Time 05/07/2023 [id number] chronic pelvic pain: care instructions [facility] Not available 05/07/2023 12:15:52 Reason for Referral Physical Therapist Referral for Chronic pelvic pain of female Referring Physician: Sosa Cordova, [employer] Intelligence Officer, Encounter Date: 05/07/2023 Results Created Date Observation Date Name Description Value Unit Range Abnormal Flag Note LastModifiedBy Organization Detail LastModifiedTime 01/24/20 18 01/23/2018 pregn gustavo test, urine HCG negati ve Not Available In-Office Order Internal Use Only DO Not Attach Compendium DO Not Attach Compendium, Do Not Delete/merge, [id number] 01/23/2018 14:10:20 01/23/20 22 01/23/2022 CT, NG, TRICH VAG BY NESHA chlamydia by NESHA Negati ve negati ve Not Available [facility] ([facility]) [address] [place], [address], 01/24/2022 07:12:44 01/23/20 22 01/23/2022 CT, NG, TRICH VAG BY NESHA gonococcus by NESHA Negati ve negati ve Not Available [facility] ([facility]) [address] [place], [address], 01/24/2022 07:12:44 01/23/20 22 01/23/2022 CT, NG, TRICH VAG BY NESHA trich vag by NESHA Negati ve negati ve Not Available [facility] ([facility]) [address] [place], [address], 01/24/2022 07:12:44 01/23/20 22 01/24/2022 URINE CULTU RE, ROUTI NE urine culture, routine Final report Not Available [facility] ([facility]) [address] [facility], [place], [address], 01/24/2022 07:12:44 01/23/20 22 01/24/2022 URINE CULTU RE, ROUTI NE result 1 Commen t Mixed uroge nital rajeev Less than 10,00 0 colon ies/m L Not Available [facility] ([facility]) [address] [facility], [place], [address], 01/24/2022 07:12:44 01/23/20 22 01/22/2022 urina lysis , dipst ick Leukocytes Negati ve Not Available In-Office Order Internal Use Only DO Not Attach Compendium DO Not Attach Compendium, Do Not Delete/merge, [id number] 01/22/2022 14:57:58 01/23/20 22 01/22/2022 urina lysis , dipst ick Nitrite negati ve Not Available In-Office Order Internal Use Only DO Not Attach Compendium DO Not Attach Compendium, Do Not Delete/merge, [id number] 01/22/2022 14:57:58 01/23/20 22 01/22/2022 urina lysis , dipst ick Urobilinogen .2 Not Available In-Of fice Order Internal Use Only DO Not Attach Compendium DO Not Attach Compendium, Do Not Delete/merge, [id number] 01/22/2022 14:57:58 01/23/20 22 01/22/2022 urina lysis , dipst ick Protein Negati ve Not Available In-Office Order Internal Use Only DO Not Attach Compendium DO Not Attach Compendium, Do Not Delete/merge, [id number] 01/22/2022 14:57:58 01/23/20 22 01/22/2022 urina lysis , dipst ick pH 7.0 Not Available In-Office Order Internal Use Only DO Not Attach Compendium DO Not Attach Compendium, Do Not Delete/merge, [id number] 01/22/2022 14:57:58 01/23/20 22 01/22/2022 urina lysis , dipst ick Blood Negati ve Not Available In-Office Order Internal Use Only DO Not Attach Compendium DO Not Attach Compendium, Do Not Delete/merge, 01/22/2022 14:57:58 01/23/20 22 01/22/2022 urina lysis , dipst ick Specific [place] 1.015 Not Available In-Off ice Order Internal [...] 02/13/2022 urina lysis , dipst ick Specific [place] 1.030 Not Available In-Off ice Order Internal [...] DO Not Attach Compendium, Do Not Delete/merge, [id number] 02/13/2022 11:35:09 02/14/20 22 02/13/2022 urina lysis , dipst ick Glucose Negati ve Not Available In-Office Order Internal Use Only DO Not Attach Compendium DO Not Attach Compendium, Do Not Delete/merge, [id number] 02/13/2022 11:35:09 05/14/20 23 05/14/2023 US, pelvi s, trans abdom inal + trans vagin al No observ ation record ed. [place] [address] [place], [address], 05/15/2023 15:34:41 Result Notes None recorded. Problems No Known Problems Procedures Surgical History Date Name Laterality Status Provider Name and Address Organization Details Recorded Time 8 Control Implant Insertion completed SULTANA Zavaleta Attn: Accounting,[address] [facility], [place], [address], [place] [facility] 02/02/2018 11:17:43 Imaging Results Imaging Date Name Status LastModified by Organization Details LastModified Time 05/14/2023 US, pelvis, transabdominal + transvaginal completed [place] [address] [place], [address], 05/15/2023 15:34:41 Procedure Notes None recorded. Medical [...] Avai lable Vitals Date Recorded Body weight Body mass index (BMI) Body height Systolic blood pressure Diastolic blood pressure Provider Name and Address Organization Details Last Updated DateTime 01/23/2018 58313.31 g 21.4 kg/m2 157.48 cm 108 mm[Hg] 70 mm[Hg] Flaquita Farias [place] - [facility] 8 14:04:53 Date Recorded Body height Body mass index (BMI) Percentile per age and sex Body mass index (BMI) Body weight Systolic blood pressure Diastolic blood pressure Provider Name and Address Organization Details Last Updated DateTime 2 157.48 cm 91 % 27.9 kg/m2 16855.8 4 g 110 mm[Hg] 64 mm[Hg] Kelly Rosales Joe [facility] 2 14:53:33 Date Recorded Body height Body mass index (BMI) Body mass index (BMI) Percentile per age and sex Body weight Systolic blood pressure Diastolic blood pressure Provider Name and Address Organization Details Last Updated DateTime 2 157.48 cm 28.3 kg/m2 92 % 03645.8 2 g 114 mm[Hg] 62 mm[Hg] Fatuma Rendon MA [facility] 2 11:34:23 Date Recorded Body height Body mass index (BMI) Body mass index (BMI) Percentile per age and sex Body weight Heart rate Systolic blood pressure Diastolic blood pressure Provider Name and Address Organization Details Last Updated DateTime 3 157.48 cm 34.2 kg/m2 97 % 47129.3 7 g 93 /min 136 mm[Hg] 79 mm[Hg] Fatuma Rendon MA [facility] 3 12:09:24 Social History Question Answer Notes LastModified by Organizat ion Details LastModified Time Tobacco Smoking Status Never Smoker Flauqita Farias MA [facility], [facility] 01/23/2018 14:05:59 What Is Your Level Of Alcohol Consumption? None Information not available 01/22/2022 In The 14 Days Before Symptom Onset, Have You Had Close Contact With A Laboratory-confirm ed COVID-19 While That Case Was Ill? No [email or web address] Information n ot available 01/22/2022 In The 14 Days Before Symptom Onset, Have You Had Close Contact With A Person Who Is Under Investigation For COVID-19 While That Person Was Ill? No Information not available 01/22/2022 Have You Been To An Area Known To Be High Risk For COVID-19? No Information not available 01/22/2022 What Was The Date Of Your Most Recent Tobacco Screening? 01/22/2022 [email or web address] Information not available 01/22/2022 Are You Sexually Active? Yes [email or web address] Information not available 01/22/2022 Do You Have Smoke And Carbon Monoxide Detectors In Your Home? Yes Information not available 01/22/2022 Are You Passively Exposed To Smoke? No [email or web address] Information no t available 01/22/2022 Do You Use Any Illicit Or Recreational Drugs? No [email or web address] Information not available 01/22/2022 Do You Or Have You Ever Used Any Other Forms Of Tobacco Or Nicotine? No [email or web address] Information not available 01/22/2022 Sex: Female Functional Status None recorded. Mental Status None recorded. Family History Nothing Reported. Medical History Condition Response Coronary Artery Disease N Other N High Blood Pressure N Atrial Fibrillation N Thyroid Problems N Kidney or Bladder Problems N GI Problems N Depression N COPD N Blood Clots N Skin Problems N Anemia N Heart Attack ([place]) N Anxiety Disorder N Diabetes N Muscle, Joint, or Bone Problems N Seizures/Epilepsy N Acid Reflux (GERD) N Cancer N Stroke N Asthma N Allergies N High Cholesterol N Hepatitis N Liver Disease N Headaches N Osteoporosis N Heart Failure N Gynecological History Statement/Question Response Flow Light Date of LMP 04/24/2023 Menses Monthly N Age at Menarche 9 Current Control Method Implant LMP Unknown Obstetrics History GPAL:G 0 P 0 0 0 0 Past Encounters Encounter ID Performer Location Encounter Start Date Encounter Closed Date Diagnosis/Indication Diagnosis SNOMED-CT Code Diagnosis ICD10 Code Diagnosis Note [id number] [facility] ([place] [address]) [address] [facility] [address] [place] [address] 01/23/2018 13:52:22 02/02/2018 18:43:48 Contraception care 474023981 Z30.40 [id number] SULTANA Zavaleta 14 OB [address] [facility] [address] [place] [address] 01/22/2022 14:32:38 01/23/2022 06:01:14 At increased risk of urinary tract infection 443846615 Z91.89 1. Will send meds out for UTI 2. Pt instructed to increase fluids, decrease soda, sugary beverages and caffeinate d beverages. 3. To call office if symptoms worsen or do not improve with treatment. Dysuria 35130724 R30.9 1. STD testing done per pt symptoms 2. Educated pt on STD prevention , Condom use 3. Pt verbalized understand ing 4. Will follow up pending lab results, as needed or at next annual [facility] ion care management 869426835 Z30.9 Pt will schedule nexplanon removal and replacemen t. [id number] ANTONIO Zavaleta [place] 14 OB [address] [facility] [place] [address] 02/13/2022 11:19:38 02/14/2022 08:42:22 At increased risk of urinary tract infection 217341636 Z91.89 1. Will monitor as dip was negative. 2. Pt instructed to increase fluids, decrease soda, sugary beverages and caffeinate d beverages. 3. To call office if symptoms worsen or do not improve changes. Vaginal irritation 44065 6004 N89.8 Meds sent to pharmacy. Counseled on bv/yeast prevention and treatment. Will call office back if treatment does not help with symptoms. Pt verbalized understand ing. [id number] SULTANA Zavaleta 14 OB [address] [facility] [place] [address] 05/07/2023 12:02:05 05/13/2023 08:58:15 Chronic pelvic pain of female 595044857 R10.2 Will order pelvic ultrasound . Pt advised on treatment options for ovarian cysts and fibroids including but not limited to control use. Pt educated on other causes of pelvic pain included but not limited to constipati on or bladder issues. Pt verbalized understand ing. Will follow up pending results. [facility] ion care management [id number] Z30.9 Pt will schedule nexplanon removal and [...] *SELF PAY* Be pan Atkinson 01/23/2018 1 [place] [employer] Aranza Atkinson [id number] Feli Atkinson 01/22/2022 1 [facility] ON OR AFTER 05/17/21 (MEDICAID REPLACEMENT - HMO) Aranza Atkinson [id number] Feli Atkinson 02/13/2022 [address] [facility] ON OR AFTER 05/17/21 (MEDICAID REPLACEMENT - HMO) Aranza Atkinson [id number] Feli Atkinson 05/07/[address] [facility] ON OR AFTER 05/17/21 (MEDICAID REPLACEMENT - HMO) Aranza Atkinson [id number] Feli Atkinson Notes Date Note Type Note [...] day cycle. SULTANA Zavaleta Attn: Accounting[address] [place], [address], [facility] 02/02/2018 11:19:33 01/22/2022 text/html Annual GYNReport ed [...] during sex SULTANA Zavaleta Attn: Accounting[address] [place], [address], [facility] 01/22/2022 15:12:13 02/13/2022 text/html Annual GYNReport ed [...] has helped SULTANA Zavaleta Attn: Accounting[address] [place], [address], [facility] 02/13/2022 12:06:45 05/07/2023 text/html Annual GYNReport ed [...] 4 years SULTANA Zavaleta Attn: Accounting[address] [place], [address], [facility] 05/07/2023 14:19:24 OBGyn Episode No OBEpisode recorded.
--- OUTSIDE RECORDS SUMMARY | 2025-01-05 13:43 | XMS_ITS | Clinical Summary ---
Author Organization [facility] Address [facility] [place] [address] Phone Care Team Providers Care Junior Linux Systems Administrator Name Role Phone Unavailable Primary Care Provider Unavailabl e Allergies No known active allergies Medications etonogestreL (Nexplanon) 68 mg Implant Inject by subcutaneous injection. Active Social History Tobacco Use Types Packs/Day Years Used Date Smoking Tobacco: Never Tobacco Cessation:Counseling Given: Not Answered Alcohol Use Standard Drinks/Week Comments Not Asked 0 (1 standard drink = 0.6 oz pur e alcohol) Adolescent Education Answer Date Record ed Getting School Help Needed Not on file 06/22 Feeling Safe Answer Date Recorded Are you in a relationship wi th someone who hurts you emotionally and/or physically? No 03/03/2023 Comments Unknown Sex and Gender Information Value Date Recorded Sex Assigned at Not on file Legal Sex Female 1:38 PM CDT Gender Identity Not on file Sexual Orientation Not on file Last Filed Vital Signs Vital Sign Reading Time Taken Comments Blood Pressure 124/73 03/03/2023 4:53 PM CDT Pulse 103 03/03/2023 8:13 PM CDT Temperature 36.7 C (98.1 F) 03/03/2023 8:13 PM CDT Respiratory Rate 16 03/03/2023 8:13 PM CDT Oxygen Saturation 98% 03/03/2023 8:13 PM CDT Inhaled Oxygen Concentration - - Weight 78 kg (172 lb) 03/03/2023 4:53 PM CDT Height 157.5 cm (5' 2 ) 03/03/2023 4:53 PM CDT Body Mass Index 31.46 03/03/2023 4:53 PM CDT Plan of Treatment Health Maintenance Due Date Last Done Comments CHLAMYDIA SCREENING (ANNUAL) 11-24 YEARS 2014 HPV VACCINES (1 - 3-dose series) 2018 DTAP/TDAP/TD VACCINES (1 - Tdap) 2022 HEPATITIS B VACCINES (1 of 3 - 19+ 3-dose series) 2022 INFLUENZA VACCINE (#1) 2024 CERVICAL CANCER SCREENING 2024 PNEUMOCOCCAL VACCINE 0-64 YEARS Aged Out No longer eligible based on patient's age to complete this topic Insurance MEDICAID
[2025-01-05 14:13] LABS: EDCOVIDSCREEN Negative (Negative); EDINFLUASCREEN Positive (Negative); EDINFLUBSCREEN Negative (Negative); EDSTREPNEGPOS1 Negative (Negative)
== END 2025-01-05 14:22 | disposition home or self-care (01) ==
PROVIDERS: Emergency Provider Nurse Practitioner
DX: J10.1 Influenza due to other identified influenza virus with other respiratory manifestations (principal)
CPT/HCPCS: 87081; 87426; 87804; 87880; 99213; G0463